=== PATIENT | female | born 1970 | race Caucasian/White ===

== ENCOUNTER → 2020-03-15 | Outpatient (CLI) | payer OTHER | LOC: ULTRA 16:02 | PROVIDERS: ATTEND Nurse Practitioner | DX: N88.8 Other specified noninflammatory disorders of cervix uteri (principal); N83.202 Unspecified ovarian cyst, left side ==

== ENCOUNTER 2020-03-26 14:16 | Emergency (ER) | payer OTHER ==
[~2020-03-26] VITALS: Ht 154.9 cm; Wt 59.9 kg
[2020-03-26 15:23] LABS: URINE BILIRUBIN NEGATIVE (Negative); URINE BLOOD 3+ (Negative); URINE CLARITY CLEAR; URINE COLOR YELLOW; URINE GLUCOSE-RANDOM* NEGATIVE (Negative); URINE KETONES NEGATIVE (Negative); URINE LEUKOCYTES-REFLEX NEGATIVE (Negative); URINE NITRITE-REFLEX NEGATIVE (Negative); URINE PROTEIN (DIPSTICK) NEGATIVE (Negative); URINE SPECIFIC GRAVITY >= 1.030 (1.005-1.035); URINE UROBILINOGEN 0.2 E.U./dl (0.2-1.0)
[2020-03-26 15:28] LABS: SQUAMOUS >10 Many /LPF (0-3)
[2020-03-26 15:29] LABS: BACTERIA-REFLEX 1-9 Few /HPF (None Seen); CASTS None Seen /LPF (None Seen); CRYSTALS None Seen /LPF (None Seen); URINE RBC 0-2 Rare /HPF (0-2); URINE WBC-REFLEX None Seen /HPF (0-5)
[2020-03-26 15:30] LABS: MUCUS 0-3 Light strn/LPF (None Seen)
[2020-03-26 16:21] LABS: CALCIUM 9.1 mg/dL (8.5-10.1); CREATININE 0.7 mg/dL (0.6-1.0)
[2020-03-26 16:26] LABS: ALBUMIN 3.9 g/dL (3.4-5.0); TOTAL BILIRUBIN 0.5 mg/dL (0.2-1.0); TOTAL PROTEIN 7.7 g/dL (6.4-8.2)
[2020-03-26 16:34] LABS: ABSOLUTE NEUTROPHILS 5.9 thou/uL (1.4-8.2); BASOPHILS 0.4 % (0.0-2.0); EOSINOPHILS 0.7 % (0.0-3.0); HEMATOCRIT 37.3 % (37.0-47.0); HEMOGLOBIN 12.7 gm/dL (12.0-15.0); LYMPHOCYTES 24.2 % (24.0-44.0); MCH 28.6 pg (26.0-34.0); MCHC 33.9 g/dL (28.0-37.0); MCV 84.1 fL (80.0-100.0); MONOCYTES 7.2 % (1.0-8.0); PLATELET COUNT 295 thou/uL (150-400); POLYS 67.5 % (36.0-66.0); RBC 4.43 mil/uL (4.20-5.00); RDW 12.4 % (10.5-14.5); WBC 8.7 thou/uL (4.0-11.0)
[2020-03-26] MEDS ORDERED: ONDANSETRON HCL4 M2 PO (17:08)
[2020-03-26] MEDS ORDERED: NORCO 5-325 TA1 EAC2 PO (17:08)
[2020-03-26] MEDS ORDERED: FLAGYL500 M1 PO ×2 (17:08→17:35)
[2020-03-26 17:33] VITALS: BP 141/71
== END 2020-03-26 17:33 | disposition home or self-care (01) ==
LOC: ER 14:16
PROVIDERS: Physician Assistant
DX: N93.8 Other specified abnormal uterine and vaginal bleeding (principal)

== ENCOUNTER → 2020-03-31 | Outpatient (CLI) | payer OTHER ==
[~2020-03-31] MED LIST: FLAGYL500 M1 PO; NORCO 5-325 TA1 EAC2 PO; ONDANSETRON HCL4 M2 PO
== END ==
LOC: ULTRA 13:11
PROVIDERS: ATTEND Nurse Practitioner
DX: M79.604 Pain in right leg (principal)

== ENCOUNTER 2020-04-23 00:39 | Inpatient (IN) | payer OTHER ==
[~2020-04-23] VITALS: Ht 160 cm; Wt 68.5 kg
[2020-04-23] VITALS (7 sets, daily range): BP systolic 137–169; BP diastolic 72–87
--- NOTE | ~2020-04-23 | P ---
[facility] [place] [address] PROCEDURE REPORT Name: JACKIE OLVERA Room #: 212-P [facility] IN M.R.#: [id number] Admission: 04/23/20 Attend Phys: Remy Castillo Discharge: 04/25/20 Date of : 74 Report #: [id number] THIS REPORT FOR: cc: Kori Marcus,Ludmila Dickson DO ~ CC: Kori Castillo DATE OF SERVICE: 04/25/2020 PREPROCEDURE DIAGNOSES: Menometrorrhagia, dysfunctional uterine bleeding. POSTPROCEDURE DIAGNOSES: Menometrorrhagia, dysfunctional uterine bleeding. PROCEDURE: Endometrial biopsy. DESCRIPTION OF PROCEDURE: The patient was taken to the gynecological exam room and she was placed in dorsal lithotomy position. A sterile speculum was placed in the patient's vagina. The cervix was visualized and endometrial biopsy Pipelle was placed through the cervix, gently advanced into the uterus and a small amount of endometrial tissue was aspirated. This was performed in 2 passes. The Pipelle was then removed from the patient's uterus. The speculum was removed from the patient's vagina. The patient tolerated the procedure well and was taken back to her hospital room. By: 1409 [id number] Ludmila Bacon DO /nt
[2020-04-23 01:05] LABS: ABSOLUTE NEUTROPHILS 9.2 thou/uL (1.4-8.2); BASOPHILS 0.2 % (0.0-2.0); EOSINOPHILS 0.7 % (0.0-3.0); HEMATOCRIT 37.8 % (37.0-47.0); LYMPHOCYTES 6.2 % (24.0-44.0); MCH 29.3 pg (26.0-34.0); MCHC 34.4 g/dL (28.0-37.0); MCV 85.1 fL (80.0-100.0); MONOCYTES 1.5 % (1.0-8.0); PLATELET COUNT 269 thou/uL (150-400); POLYS 91.4 % (36.0-66.0); RBC 4.44 mil/uL (4.20-5.00); RDW 12.7 % (10.5-14.5)
[2020-04-23 01:08] LABS: ANION GAP 9 mmol/L (7-16); BUN 13 mg/dL (7-18); CALCIUM 8.2 mg/dL (8.5-10.1); CHLORIDE 105 mmol/L (98-107); CO2 24 mmol/L (21-32); CREATININE 0.9 mg/dL (0.6-1.0); GLUCOSE 155 mg/dL (74-106); SODIUM 138 mmol/L (136-145)
[2020-04-23 01:12] LABS: POTASSIUM 3.7 mmol/L (3.5-5.1)
[2020-04-23 01:19] LABS: ALBUMIN 3.4 g/dL (3.4-5.0); LIPASE 74 U/L (73-393); MAGNESIUM 1.6 mg/dL (1.8-2.4); SGOT 20 U/L (15-37); SGPT 19 U/L (30-65); TOTAL BILIRUBIN 0.7 mg/dL (0.2-1.0); TOTAL PROTEIN 6.7 g/dL (6.4-8.2); TROPONIN-I <0.06 ng/mL (<0.06)
[2020-04-23 01:43] LABS: URINE BILIRUBIN NEGATIVE (Negative); URINE BLOOD 3+ (Negative); URINE CLARITY CLEAR; URINE COLOR YELLOW; URINE GLUCOSE-RANDOM* NEGATIVE (Negative); URINE KETONES NEGATIVE (Negative); URINE PROTEIN (DIPSTICK) NEGATIVE (Negative); URINE SPECIFIC GRAVITY 1.015 (1.005-1.035); URINE UROBILINOGEN 0.2 E.U./dl (0.2-1.0)
[2020-04-23 01:46] LABS: URINE LEUKOCYTES-REFLEX 2+ (Negative); URINE NITRITE-REFLEX POSITIVE (Negative)
[2020-04-23 01:49] LABS: D-DIMER 0.48 ug/mLFEU (0.19-0.50)
[2020-04-23 01:55] LABS: AMP/METHAMP Negative (Negative); BACTERIA-REFLEX >30 Many /HPF (None Seen); BARBITURATES Negative (Negative); BENZODIAZEPINES Negative (Negative); CASTS None Seen /LPF (None Seen); COCAINE Negative (Negative); CRYSTALS None Seen /LPF (None Seen); METHADONE Negative (Negative); MUCUS None Seen strn/LPF (None Seen); OPIATES Negative (Negative); PCP Negative (Negative); SQUAMOUS None Seen /LPF (0-3); URINE RBC 3-10 Few /HPF (0-2); URINE WBC-REFLEX >25 Many /HPF (0-5); WBC CLUMPS Many (None Seen)
[2020-04-23 02:10] LABS: PROTIME 10.1 Seconds (9.3-11.4)
--- NOTE | 2020-04-23 12:19 | NUR ---
HS spoke with Trudi Patino, ID nurse, regarding pt presentation, symptoms and results this morning. PT was cleared from iso and can admit to non-COVID unit per Trudi with negative x 1 result.
--- NOTE | 2020-04-23 13:45 | NUR ---
ATTEMPTED TO CALL REPORT TO [facility], WAS ASKED TO BE CALLED BACK IN 5 MINS
--- NOTE | 2020-04-23 18:52 | NUR ---
PT CARE ASSUMED AT 1415. ASSESSMENTS CHARTED. MEDICATION CHARTED. LAC IV. RAC IV. SINUS TACHYCARDIA. PT SPEAKS LITTLE ALBANIAN; INDONESIAN. PT IS UP AD MICHAEL. PT STATES THAT SHE IS UNDERGOING MENSES AT THIS TIME.
--- NOTE | 2020-04-24 02:21 | NUR ---
ASSESSED AT START OF SHIFT 1900. PT A&OX4 TAJIK SPEAKING USE OF BASIC SINHALA AND YES OR NO QUESTIONS FOR COMMUNICATION. RATED ABD PAIN 6/10. IV INTACT AND FLUIDS INFUSING. HYDROCODONE GIVEN FOR PAIN. PT UP ADLIB. CALL LIGHT AT REACH WILL CONT WITH POC TILL EOS.
[2020-04-24 03:56] LABS: CALCIUM 8.6 mg/dL (8.5-10.1); CREATININE 0.7 mg/dL (0.6-1.0); POTASSIUM 3.7 mmol/L (3.5-5.1)
[2020-04-24 04:01] LABS: TROPONIN-I <0.06 ng/mL (<0.06)
[2020-04-24 04:45] VITALS: BP 143/82
--- NOTE | 2020-04-24 07:42 | EKG ---
[facility] [place] [address] ELECTROCARDIOGRAM REPORT Name: JACKIE OLVERA Room #: 212- ADM IN M.R.#: [id number] Admission: 04/23/20 Attend Phys: Remy Castillo Discharge: Date of : 74 Report #: [id number] THIS REPORT FOR: cc: Kori Marcus Beth RNP Lundgren, Craig H. MD [facility] THIS REPORT FOR: //name// [facility] ED Test Date: 2020-04-23 Test Time: 01:02:56 Pat Name: JACKIE OLVERA Department: Room: [facility] Gender: F Oral Health Therapist: : 1970 Requested By: Roni Michelle Order Number: [id number] MD: Julio Piper Measurements Intervals [place] Rate: 150 P: 60 WV: 111 QRS: 78 QRSD: 97 T: -15 QT: 291 QTc: 460 Interpretive Statements Sinus tachycardia Otherwise no significant abnormality No previous ECG available for comparison Electronically Signed On 04-24-2020 7:42:41 MANAGER OF INTERNAL by Julio Piper [email or web address] <ELECTRONICALLY SIGNED> By: Julio Piper MD, FACC 04/24/20 0742 1 1 Julio Piper MD, [facility] /EPI
[2020-04-24 07:55] VITALS: BP 139/78
[2020-04-24 11:25] VITALS: BP 171/91
[2020-04-24 15:35] VITALS: BP 140/71
--- NOTE | 2020-04-24 17:35 | NUR ---
PT ALERT AND ORIENTED. REPORT HAVING INTERMITTENT CORDERO. REPORT THAT SHE HAS BEEN HAVING THIS KIND OF CORDERO FOR A LONG TIME. DR. MCKEON NOTIFIED. NEW ORDERS NOTED. AT THE BEDSIDE. NO CONCERNS AT THIS TIME.
[2020-04-24 20:12] VITALS: BP 155/98
[2020-04-25 06:10] VITALS: BP 139/87
--- NOTE | 2020-04-25 06:20 | NUR ---
PT C/O CORDERO GIVEN PAIN MED AND ICE PACK, VSS, RESTING QUIETLY IN ROOM FLUIDS INFUSING IN R AC, UP ADLIB IN ROOM, WILL CON'T TO MONITOR PER PPOC.
[2020-04-25 07:55] VITALS: BP 140/74
[2020-04-25 09:15] VITALS: BP 151/72
[2020-04-25 09:27] LABS: HEMATOCRIT 39.4 % (37.0-47.0); HEMOGLOBIN 13.8 gm/dL (12.0-15.0)
[2020-04-25 11:08] VITALS: BP 140/74
[2020-04-25] MEDS ORDERED: KEFLEX500 M1 PO (11:13)
[2020-04-25 11:55] VITALS: BP 140/74
[2020-04-25 14:33] VITALS: BP 140/74
--- NOTE | 2020-04-25 17:47 | NUR ---
PT CARE ASSUMED AT 0700. ASSESSMENTS CHARTED. MEDICATION CHARTED. RAC IV. LAC IV. AUTOMATED MANUFACTURING INSTRUCTOR EXAM PERFORMED. NO TELEMETRY. PT DISCHARGED TO HOME. IV D/C'D. DISCHARGE PAPERWORK SIGNED.
--- NOTE | 2020-04-26 17:06 | PATH ---
[facility] [place] [address] PATHOLOGY RPT PROCEDURE Name: JACKIE OLVERA Room #: 212-P DIS IN M.R.#: [id number] Admission: 04/23/20 Date of : 74 Discharge: 04/25/20 Report #: [id number] Path Case #: [id number] [facility] Accession Number: [id number] . 01 Material submitted: . endometrium - ENDOMETRIAL BIOPSY . 01 Clinical history: . PE, PUI, PYELO, MENOMETRORRHAGIA . 02 Diagnosis: Uterus, endometrial biopsy: - Glandular and stromal breakdown associated with fibrin (please see comment). - Negative for hyperplasia or malignancy. - Specimen predominantly comprised of blood after predominantly (60%). . (IUV:mml; 04/26/2020) QLM 04/26/2020 1508 Local . 02 Comment: Findings are suggestive of anovulatory cycles or unopposed estrogen exposure. Please correlate clinically. . (IUV:mml; 04/26/2020) . 02 Electronically signed: . Marry Avila MD, Pathologist NPI- [id number] . 01 Gross description: . Received in formalin labeled "Jackie Olvera Endo BX" is a 2.5 x 2.3 x 0.4 cm aggregate of red-brown friable soft tissue fragments. The specimen is submitted entirely in A1. [place] [place] [facility] 04/25/2020 1815 Local . 02 Pathologist provided ICD-10: N85.9, N92.1 . 02 CPT . 173081 Specimen Comment: A courtesy copy of this report has been sent to [phone], [phone] Specimen Comment: [phone], Specimen Comment: Report sent to ,DR MULLIGAN / DR ISIDRO Performed at: [address] [place] [address] PATHOLOGY RPT PROCEDURE Name: JACKIE OLVERA Room #: 212-P [facility] IN M.R.#: [id number] Admission: 04/23/20 Date of : 74 Discharge: 04/25/20 Report #: [id number] Path Case #: [id number] [address] [facility] [address], [place], [place] [id number] MD Papito Hughes MD Phone: [phone] Performed at: [address] [id number] MD Marry Avila MD Phone: [phone]
== END 2020-04-25 15:39 | disposition home or self-care (01) | DRG 854 ==
LOC: ER 00:39 → 2N 03:51 → EROBS 03:51 → 2N 14:00
PROVIDERS: Emergency Medicine; Hospitalist; Nurse Practitioner Family; ADMIT Hospitalist; ATTEND Hospitalist
PROC: 0UDB7ZX Extraction of Endometrium, Via Natural or Artificial Opening, Diagnostic (ICD-10-PCS; principal; 2020-04-25)
DX: A41.51 Sepsis due to Escherichia coli [E. coli] (principal); N12 Tubulo-interstitial nephritis, not specified as acute or chronic; B96.20 Unspecified Escherichia coli [E. coli] as the cause of diseases classified elsewhere; N93.9 Abnormal uterine and vaginal bleeding, unspecified; R91.1 Solitary pulmonary nodule; R00.0 Tachycardia, unspecified; E83.42 Hypomagnesemia; G89.29 Other chronic pain; N92.1 Excessive and frequent menstruation with irregular cycle; Z20.828 Contact with and (suspected) exposure to other viral communicable diseases; Z79.899 Other long term (current) drug therapy
CPT/HCPCS: 10081